=== PATIENT | male | born 1945 | race Caucasian/White ===

== ENCOUNTER 2016-05-16 11:46 | Day surgery (SDC) | payer MEDICARE, OTHER ==
[~2016-05-16] VITALS: Ht 188 cm; Wt 88.5 kg
[~2016-05-16 11:46] MED LIST: 0.9% Sodium Chloride 1,000 ML IV SCH; ASPI-973 PO; ATEN50TA PO; ATOR20TA PO; CETI10CA PO; COLC0.6T52 PO; LISI10TA PO; MULT-1073 PO; OXYB10TA PO; Sodium Chloride LOK Flush 10 mL Syringe IV PRN; TAMS0.4C98 PO; TEST200V20 IM; fentaNYL-PF 50 mCg/mL 2 mL Inj IVPUSH PRN
[2016-05-16 13:12] VITALS: BP 151/96; PULSE 64; RESP 16; O2SAT 96
[2016-05-16 14:35] VITALS: BP 136/74; PULSE 70; RESP 14; O2SAT 95
[2016-05-16 14:45] VITALS: BP 131/78; PULSE 67; RESP 16; O2SAT 96
--- NOTE | 2016-05-16 15:56 | ENDO ---
[address] [address] ENDOSCOPY PROCEDURE PATIENT: YADIEL MARTIN : 1945 MR#: [id number] ADMIT: 05/16/2016 JOB ID: [id number] PROCEDURE: Colonoscopy. INDICATION: Screening. Patient's ASA classification is II. Mallampati score is II. MEDICATIONS: Versed 5 mg, fentanyl 125 mcg. INSTRUMENT USED: PCF-H180AL. Prep quality was fair. PROCEDURE DETAILS: After informed consent was obtained, the patient was brought into the GI suite, where he was placed on oxygen via nasal cannula and monitored with continuous pulse oximeter, telemetry, and blood pressure monitoring. A time-out was performed. Then, he was placed in a left lateral decubitus position and medications were administered for sedation. A digital rectal exam with palpation of the prostate was performed, which was unremarkable. The colonoscope was then inserted into the rectum and advanced under direct visualization to the cecum, which was identified by the presence of the ileocecal valve and appendiceal orifice. Once the cecum was reached, colonoscope was withdrawn back into the rectum. Mucosa and lumen were examined. In the rectum, retroflexion was performed. Following retroflexion, remaining air in the rectum was suctioned, and procedure was completed. FINDINGS: 1. There was an approximately 6 mm sessile polyp in the ascending colon that was removed with a hot snare. 2. In the descending colon, there were three polyps that ranged in size from 6 mm to diminutive that were removed with a combination of hot snare, cold snare, and cold biopsy forceps. IMPRESSION: 1. Ascending colon polyp. 2. Three descending colon polyps. RECOMMENDATIONS: 1. Avoid NSAIDs and anticoagulants for 72 hours. 2. Repeat colonoscopy in three years. COMPLICATIONS: None. ESTIMATED BLOOD LOSS: Less than 5 mL.
--- NOTE | 2016-05-27 15:09 | PATH ---
SURGICAL PATHOLOGY Attending Physician:Prerna Adams CASE STATUS: Signed Out * Amended * PATIENT NAME: YADIEL MARTIN PID: [id number] : 1945 DATE COLLECTED:05/16/2016 00:00 SPECIMEN: 1: Colon, Biopsy 2: Colon, Biopsy CLINICAL HISTORY: POLYP 1). ASCENDING COLON POLYP 2). DESCENDING COLON POLYP X3 FINAL DIAGNOSIS: 1. Ascending Colon, Polyp, Biopsy: Portions of tubular adenoma x6; negative for high-grade dysplasia. 2. Descending Colon, Polyp x3, Biopsy: Portions of tubular adenoma x5; negative for high-grade dysplasia. Superficial portion of colorectal mucosa x1 with no significant histomorphologic abnormality. ICD10 K63.5 This case was reviewed and interpreted by Dr. Charity Xavier. The final diagnosis is unchanged. This amendment is issued in order for the report to cross the interface and be available in the hospital electronic medical record. GROSS DESCRIPTION: The specimen is received in two formalin filled containers labeled with the patient's name. 1). The specimen is sublabeled "ascending polyp" and consists of 6 portions of tissue which aggregate to 0.3 x 0.3 x 0.2 CM. The specimen is entirely submitted in cassette 1A. 2). The specimen is sublabeled "descending colon polyp" and consists of 6 portions of tissue which aggregate to 0.3 x 0.3 x 0.2 CM. The specimen is entirely submitted in cassette 2A. 05/17/2016 [facility] ICD-9 CODES: CPT CODES: 1: 97245 2: 75504 AMENDMENT(S): Amended: 05/27/2016 by Kath Edge Reason:Miscellaneous The final diagnosis is unchanged. This amendment is issued in order for the report to cross the interface and be available in the hospital electronic medical record. Previous Signout Date: 05/20/2016 Electronically Signed Out Emily Douglas MD [facility] Pathology [facility], [place] [address] Technical component performed at [facility], [facility] [address], [place], [address]
== END 2016-05-16 23:59 | disposition home or self-care (01) ==
LOC: END 11:46
PROVIDERS: ATTEND Internal Medicine Gastroenterology
DX: Z12.11 Encounter for screening for malignant neoplasm of colon (principal); D12.2 Benign neoplasm of ascending colon; D12.4 Benign neoplasm of descending colon; I10 Essential (primary) hypertension
CPT/HCPCS: 45380; 45385; 88305; 99153; G0500; J2250; J3010; J7030